=== PATIENT | female | born 1980 | race Caucasian/White ===

== ENCOUNTER → 2025-04-14 15:00 | Outpatient (REF) | payer OTHER, SELFPAY | LOC: HWWDC 15:00 | PROVIDERS: ATTENDING PHYSICIAN Family Medicine; REFERRING PHYSICIAN Student in an Organized Health Care Education/Training Program | DX: Z12.31 Encounter for screening mammogram for malignant neoplasm of breast (principal) | CPT/HCPCS: 77063; 77067 ==